=== PATIENT | male | born 1955 | race Caucasian/White ===

== ENCOUNTER 2021-02-15 11:12 | Emergency (ER) | payer OTHER ==
[~2021-02-15] VITALS: Ht 172.7 cm; Wt 82.3 kg
[2021-02-15 11:27] VITALS: BP 155/86
[2021-02-15] MEDS ORDERED: ketorolac tromethamine 15mg/ml inj. IM ONE (13:35)
[2021-02-15] MEDS ORDERED: IBUP-1984 PO (13:48)
== END 2021-02-16 07:17 | disposition home or self-care (01) ==
LOC: ER 11:13
DX: S69.92XA Unspecified injury of left wrist, hand and finger(s), initial encounter (principal); M79.642 Pain in left hand; I10 Essential (primary) hypertension; Z72.89 Other problems related to lifestyle; Z79.899 Other long term (current) drug therapy; W19.XXXA Unspecified fall, initial encounter; Y93.89 Activity, other specified; Y92.89 Other specified places as the place of occurrence of the external cause; Y99.8 Other external cause status
CPT/HCPCS: 29125; 73130; 96372; 99283; J1885

== ENCOUNTER 2022-01-11 08:19 | Day surgery (SDC) | payer MEDICARE, OTHER ==
[2022-01-11] VITALS (7 sets, daily range): BP systolic 136–158; BP diastolic 72–108
[~2022-01-11] VITALS: Ht 180.3 cm; Wt 83.8 kg
[2022-01-11] MEDS ORDERED: LIDOcaine 1% 30ml preserv. free vial SQ STA (08:39)
[2022-01-11] MEDS ORDERED: LOSA100T57 PO (08:54)
== END 2022-01-11 09:45 | disposition home or self-care (01) ==
LOC: SSTAY O 08:19
PROVIDERS: ATTEND Radiology Vascular & Interventional Radiology
DX: R59.0 Localized enlarged lymph nodes (principal); F17.210 Nicotine dependence, cigarettes, uncomplicated; Z72.89 Other problems related to lifestyle; Z79.899 Other long term (current) drug therapy; Z98.890 Other specified postprocedural states
CPT/HCPCS: 10005; J7030

== ENCOUNTER 2023-01-04 12:47 | Outpatient (CLI) | payer MEDICARE, OTHER ==
[~2023-01-04 12:47] MED LIST: LOSA100T58 PO
== END 2023-01-04 23:59 | disposition home or self-care (01) ==
LOC: RAD 12:47
PROVIDERS: ATTEND Family Medicine
DX: N28.1 Cyst of kidney, acquired (principal); N12 Tubulo-interstitial nephritis, not specified as acute or chronic
CPT/HCPCS: 76770